=== PATIENT | male | born 1980 | race Hispanic/Latino ===

== ENCOUNTER 2025-01-14 06:55 | Day surgery (SDC) | payer BC ==
[2025-01-12 13:09] LABS: IMMATURE GRANULOCYTE ABSOLUTE 0.04 K/uL (0-1); NUCLEATED RED BLOOD CELLS 0.0 % (0.0-0.19); PLATELET COUNT (AUTO) 253 K/uL (130-400); RED BLOOD CELL COUNT(AUTO) 6.01 MIL/uL (4.50-6.20); RED CELL DISTRIBUTION WIDTH 14.0 % (11.0-15.5); WHITE BLOOD COUNT (AUTO) 9.0 K/uL (4.8-10.8)
[2025-01-12 13:10] VITALS: BP 144/95; PULSE 94; RESP 15; TEMP 97.7
[2025-01-12 13:19] LABS: CREATININE 1.3 mg/dL (0.5-1.3); GLOMERULAR FILTR. RATE CALC 70.0 mL/min (>90); GLUCOSE,RANDOM 122.0 mg/dL (70-105); SODIUM SERUM 140.0 mmol/L (136-145); UREA NITROGEN, BLOOD 22.0 mg/dL (7-18)
[2025-01-12 13:27] LABS: INR 0.99 (0.85-1.15)
[2025-01-14] VITALS (17 sets, daily range): BP systolic 103–173; BP diastolic 58–90; PULSE 81–104; RESP 12–20; TEMP 97–98.4
[~2025-01-14] VITALS: Ht 182.9 cm; Wt 150.6 kg
[~2025-01-14 06:55] MED LIST: AMLO-258 PO; IBUP-2077 PO; OLME-29 PO; TRAM100C3 PO
[2025-01-14] MEDS ORDERED: LACTATED RINGERS 1000ML 1,000 ML IV ONE (06:56)
[2025-01-14] MEDS ORDERED: SUGAMMADEX SODIUM 200 MG/2 ML VIAL IV ONE (07:51)
[2025-01-14] MEDS ORDERED: LIDOCAINE PF 100MG/5ML (2%) SYRINGE 5ML ONE (08:00)
[2025-01-14] MEDS ORDERED: SUCCINYLCHOLINE CHLORIDE 20 MG/ML 10 ML VIAL ONE (08:01)
[2025-01-14] MEDS ORDERED: MIDAZOLAM HCL 1 MG/ML 2ML VIAL ONE (08:02)
[2025-01-14] MEDS ORDERED: HYDR-4060 PO (08:32)
[2025-01-14] MEDS ORDERED: DOCU-116 PO (08:32)
[2025-01-14] MEDS ORDERED: TIZA2CAP9 PO (08:32)
[2025-01-14] MEDS ORDERED: PROMETHAZINE HCL 25 MG/ML 1ML AMPULE IM PRN (09:30)
--- NOTE | 2025-01-15 17:24 | OP ---
Operative Note: DATE OF PROCEDURE: 01/14/25 SURGEON: MELANIA CABA MD HISTORY DEPARTMENT CHAIR: Tony Orozco and Renee Wright ANESTHESIA: General and femoral nerve block ANESTHESIOLOGIST/DENTAL CERAMIST HELPER: LOIDA Garsia PREOPERATIVE DIAGNOSIS: Right quadriceps tendon avulsion POSTOPERATIVE DIAGNOSIS: Right quadriceps tendon avulsion PROCEDURE: Right quadriceps tendon repair ESTIMATED BLOOD LOSS: 100 cc INDICATIONS: 44-year-old male status post fall with injury to right knee. Patient initially presented to outside facility where x-rays showed small avulsion fracture proximal to the patella with retraction. He subsequently followed up in my clinic where we obtained an MRI showing a disruption of the right quadriceps tendon in addition to the small bony fragment. After discussion of the risks, benefits, and alternatives, the patient voluntarily agreed to undergo the aforementioned procedure. DESCRIPTION OF PROCEDURE: Patient was properly identified in the preoperative holding area. Surgical site marking was verified and surgery consent reviewed. The patient was then taken to the operating room and placed in supine position on the OR table. After induction of general anesthesia, preoperative antibiotics were given, all bony prominences were well-padded, and a well padded tourniquet was applied but not inflated at this time. The right lower extremity was then prepped and draped in usual sterile fashion. Surgical timeout was done verifying correct surgery, side, site, and location to be performed. We exsanguinated the limb with an Esmarch and inflated the tourniquet to 300 mm Hg. We then obtained a 10 blade and made an anterior midline incision approximately 15 cm in length. We came down sharply to the level of the fascia. Full-thickness skin and subcutaneous flaps were elevated medially and laterally. We were easily able to identify the disruption site with a tear in the fascia/paratenon layer at this site. We evacuated a large amount of hematoma using our suction. We then began elevating medial and lateral flaps of the paratenon extending proximally. We debrided the patella using rongeur and curette. We also debrided the free end of the quadriceps tendon using rongeur and curette. We thoroughly irrigated out the wound with normal saline. We used #5 Ethibond sutures in a Krackow type fashion extending up the medial and lateral aspect of the tendon intact and back down the central portion of the tendon to gain control of the tendon. We then sequentially placed longitudinal drill tunnels in the patella using a 2.5 drill bit. Depth and alignment was verified using fluoroscopy. Using a Fall suture Passer, we were able to pass the two central limbs through a central tunnel and the medial and lateral limbs through medial and lateral tunnels respectively. These were covered at the inferior edge of the patella. The foot was placed on a bump as we began s huttling the medial limb of the suture hole into the central portion of the patellar tendon. Here we tied this to the central/lateral limb bringing of the free end of the quad tendon down to the proximal patella. We used a hemostat to tunnel the central/medial to the lateral region. Here we tied these two suture ends together tightening the free end of the quad tendon down to the proximal patella. #5 Ethibond was used to reinforce the repair the proximal medial stent were some of the deep medial tendon remained intact and laterally using the lateral retinacular tissues. #1 Vicryl was used to repair the patellar tendon over the Ethibond sutures distally. This was also used to repair the paratenon over the entire construct. 2-0 Vicryl was used in the subcutaneous tissues with a 3-0 subcuticular running Monocryl for the skin. Dermabond was applied over this. Sterile soft dressing applied. Our tourniquet was then deflated. The patient was then awakened from anesthesia and taken to the recovery room in stable condition. MELANIA CABA MD Jan 15, 2025 17:24
== END 2025-01-14 13:15 | disposition home or self-care (01) ==
LOC: DAH 06:55
PROVIDERS: ATTEND Student in an Organized Health Care Education/Training Program
DX: S76.111A Strain of right quadriceps muscle, fascia and tendon, initial encounter (principal); I10 Essential (primary) hypertension; Z79.01 Long term (current) use of anticoagulants; W10.9XXA Fall (on) (from) unspecified stairs and steps, initial encounter; Y93.89 Activity, other specified; Y92.098 Other place in other non-institutional residence as the place of occurrence of the external cause; Z68.41 Body mass index [BMI] 40.0-44.9, adult; Y99.8 Other external cause status; E66.9 Obesity, unspecified; Z79.899 Other long term (current) drug therapy
CPT/HCPCS: 82040; 80048; 85025; 85610; 85730; 84134; 86140; 36415; 87641; 27385; 64447; 73552; J1885; A4663; J7120 ×2; J0690 ×3; J3010 ×4; J1100; J0330; J2270; J3490 ×4; J2003; J2250; J2704; J2405; J2371; A4649; A4930 ×2; A4215; A4213; A4222; A4221; A4216; A6450; A4223 ×2; J0665